=== PATIENT | female | born 1940 | race Caucasian/White ===

== ENCOUNTER 2018-07-10 16:02 | Emergency (ER) | payer OTHER ==
[2018-07-10 16:27] VITALS: BP 157/64; PULSE 72; TEMP 98.7; BMI 35.4
--- NOTE | 2018-07-10 16:33 | PDOC ---
Rapid Medical Evaluation Chief Complaint: Pain Time Seen by Provider: 07/10/18 16:26 Medical Evaluation: Allergies Allergy/AdvReac Type Severity Reaction Status Date / Time shellfish derived Allergy Severe Vomiting Verified 07/10/18 16:22 Vital Signs Temp Pulse Resp BP Pulse Ox 98.7 F 72 18 157/64 98 07/10/18 16:23 07/10/18 16:23 07/10/18 16:23 07/10/18 16:23 07/10/18 16:23 07/10/18 16:30 I have performed a brief in-person evaluation of this patient. The patient presents with a chief complaint of: right lower leg and calf pain since yesterday which only comes on with ambulation Pertinent physical exam findings: mild right peripheral LE edema. no calf tenderness. neg horman's sign I have ordered the following: RLE doppler The patient will proceed to the ED for further evaluation. Discharge Disposition - Diagnosis Right leg pain - Referrals - Patient Instructions - Post Discharge Activity
[2018-07-10] MEDS ORDERED: IBUPROFEN 600 MG TABLET (FP) PO ONE ×2 (16:49→17:01)
--- NOTE | 2018-07-10 17:03 | PDOC ---
History of Present Illness - General Chief Complaint: Pain Stated Complaint: LEG PAIN Time Seen by Provider: 07/10/18 16:26 History Source: Patient Exam Limitations: No Limitations - History of Present Illness Initial Comments: 07/10/18 16:53 pt c/o leg pain right side medial calf and front of calf for 2 days worse with crossing her leg. denies direct trauma. pt did not take any meds [employer] for pain no recent surgery or long trip. 07/10/18 17:20 Past History - Past Medical History Allergies/Adverse Reactions: Allergies Allergy/AdvReac Type Severity Reaction Status Date / Time shellfish derived Allergy Severe Vomiting Verified 07/10/18 16:22 COPD: No - Immunization History Immunization Up to Date: Yes - Suicide/Smoking/Psychosocial Hx Smoking History: Never smoked Hx Alcohol Use: Yes (social) Drug/Substance Use Hx: No *Physical Exam - Vital Signs Last Vital Signs Temp Pulse Resp BP Pulse Ox 98.7 F 72 18 157/64 98 07/10/18 16:23 07/10/18 16:23 07/10/18 16:23 07/10/18 16:23 07/10/18 16:23 Medical Decision Making - Medical Decision Making 07/10/18 17:23 cc: 2 days pain to the right lower leg no redness, no streaking skin intact ttp posterior knee US ordered from E pt refused motrin does not want to incur cost of the pills US resulted neg DVT popliteal cyst with osteochondrial bodies refer to orthopedist results discussed with patient copy of US given . pt agress with plan, all questions asked and answered. 07/10/18 18:34 *DC/Admit/Observation/Transfer Diagnosis at time of Disposition: Right leg pain Popliteal cyst Qualifiers: Laterality: right Qualified Code(s): M71.21 - Synovial cyst of popliteal space [[place]], right knee - Discharge Dispostion Disposition: HOME Condition at time of disposition: Good - Referrals Referrals: Seb Matson MD [Staff Physician] - - Patient Instructions Additional Instructions: elevate the leg and apply a warm compress behind the knee for 20-30 minutes every 4 hrs use the karthik wrap at all times except to bathe take ibuprofen (advil 400-600mg ) every 6hrs for pain follow with the orthopedist for follow up listed below [id number] or - Post Discharge Activity
== END 2018-07-10 17:28 | disposition home or self-care (01) ==
LOC: JERFT 16:02
DX: M71.21 Synovial cyst of popliteal space [Baker], right knee (principal)
CPT/HCPCS: 93971-TC; 99281-25

== ENCOUNTER 2023-03-15 08:28 | Inpatient (IN) | payer OTHER ==
[2023-03-15 08:40] VITALS: BMI 37.0
[2023-03-15] MEDS ORDERED: ACETAMINOPHEN 500 MG TABLET (FP) PO ONE (09:08)
[2023-03-15] MEDS ORDERED: ACETAMINOPHEN 325 MG TABLET (FP) ONE (09:24)
[2023-03-15 09:44] LABS: EPI CELLS 13 /uL (0-25.1); HYALINE CASTS 0 /uL (0-3.1); URINE APPEARANCE CLEAR; URINE BACTERIA 2 /uL (0-1359); URINE BILIRUBIN NEGATIVE (NEGATIVE); URINE COLOR YELLOW; URINE GLUCOSE (UA) NEGATIVE (NEGATIVE); URINE KETONE NEGATIVE (NEGATIVE); URINE LEUK ESTERASE NEGATIVE (NEGATIVE); URINE NITRITE NEGATIVE (NEGATIVE); URINE PROTEIN NEGATIVE (NEGATIVE); URINE RBC 45 /uL (0-23.9); URINE UROBILINOGEN 0.2 mg/dL (0.2-1.0); URINE WBC 7 /uL (0-25.8)
[2023-03-15] MEDS ORDERED: morphine SULFATE 4 MG/ML VIAL IVPUSH ONE ×2 (10:13→13:42)
[2023-03-15 10:37] LABS: BASO % 0.1 % (0-2.0); EOS % 0.2 % (0-4.5); HEMATOCRIT 37.2 % (32.4-45.2); HEMOGLOBIN 12.3 GM/dL (10.7-15.3); LYMPH % 8.8 % (8-40); MCH 28.7 pg (25.7-33.7); MCHC 33.1 g/dl (32.0-36.0); MEAN CELL VOLUME 86.8 fl (80-96); MEAN PLT VOLUME 8.8 fl (7.5-11.1); MONO % 7.1 % (3.8-10.2); NEUT % 83.8 % (42.8-82.8); PLATELET COUNT 208 10^3/uL (134-434); RBC 4.29 M/mm3 (3.60-5.2); RDW 13.3 % (11.6-15.6); WHITE BLOOD COUNT 11.8 K/mm3 (4.0-10.0)
[2023-03-15 10:55] LABS: POTASSIUM 4.4 mmol/L (3.5-5.1)
[2023-03-15 10:57] LABS: CALCIUM 9.1 mg/dL (8.5-10.1)
[2023-03-15 10:58] LABS: ALBUMIN 3.3 g/dl (3.4-5.0); BLOOD UREA NITROGEN 14.1 mg/dL (7-18)
[2023-03-15 11:02] LABS: BILIRUBIN,TOTAL 0.6 mg/dL (0.2-1); CREATININE 1.7 mg/dL (0.55-1.3)
[2023-03-15 11:04] LABS: TOT PROT 6.5 g/dl (6.4-8.2)
[2023-03-15] MEDS ORDERED: CEFTRIAXONE 1,000 MG in DEXTROSE 5%-WATER - 50 ML IVPB ONE (11:18)
[2023-03-15 11:21] LABS: ACTIVATED PTT 29.8 SECONDS (25.2-36.5); INR 0.93 (0.83-1.09); PROTHROMBIN TIME (PATIENT) 10.8 SEC (9.7-13.0)
[2023-03-15] MEDS ORDERED: CEFTRIAXONE 1 GM/50 ML BAG ONE (11:28)
[2023-03-15] MEDS ORDERED: LACTATED RINGERS SOLUTION 1000 ML INFUS.BAG IV ONE (11:29)
[2023-03-15] MEDS ORDERED: morphine CARPU-JECT 2 MG/1 ML DISP.SYRIN IVPUSH ONE (11:52)
[2023-03-15] MEDS ORDERED: morphine SULFATE 4 MG/ML VIAL ONE (13:42)
[2023-03-15] MEDS ORDERED: ONDANSETRON 4 MG/2 ML VIAL IVPUSH PRN (14:26)
[2023-03-15] MEDS ORDERED: ACETAMINOPHEN 500 MG TABLET (FP) PO PRN (14:26)
[2023-03-15] MEDS ORDERED: ONDANSETRON 4 MG/2 ML VIAL ONE (14:38)
[2023-03-15] MEDS ORDERED: TAMSULOSIN HCL 0.4 MG CAP ONE (14:38)
[2023-03-15] MEDS: TAMSULOSIN HCL 0.4 MG CAP PO SCH (14:39)
[2023-03-15] MEDS: LACTATED RINGERS SOLUTION 1,000 ML/1,000 ML INFUS.BAG IV SCH ×2 (14:46→19:56)
[2023-03-15] MEDS ORDERED: HEPARIN NA (PORCINE) 5,000 UNITS/ML 1ML VIAL SQ SCH (22:00)
[2023-03-16] MEDS ORDERED: PROPOFOL 20 ML ONE (08:11)
[2023-03-16] MEDS ORDERED: LACTATED RINGERS SOLUTION 1,000 ML IV SCH (08:15)
[2023-03-16] MEDS ORDERED: ceFAZolin SODIUM 1 GM VIAL IVPB ONE (08:20)
[2023-03-16] MEDS ORDERED: LACTATED RINGERS SOLUTION 1,000 ML/1,000 ML INFUS.BAG IV SCH (09:07)
[2023-03-16] MEDS ORDERED: ONDANSETRON 4 MG/2 ML VIAL IVPUSH PRN (09:07)
[2023-03-16] MEDS: TAMSULOSIN HCL 0.4 MG CAP PO SCH (10:36)
[2023-03-16] MEDS: HEPARIN NA (PORCINE) 5,000 UNITS/ML 1ML VIAL SQ SCH (10:43)
[2023-03-16] MEDS: LACTATED RINGERS SOLUTION 1,000 ML/1,000 ML INFUS.BAG IV SCH (11:45)
[2023-03-16 15:36] LABS: POTASSIUM 4.7 mmol/L (3.5-5.1)
[2023-03-16 15:37] LABS: CALCIUM 8.4 mg/dL (8.5-10.1)
[2023-03-16 15:38] LABS: BLOOD UREA NITROGEN 16.6 mg/dL (7-18)
[2023-03-16 15:41] LABS: CREATININE 2.4 mg/dL (0.55-1.3)
[2023-03-16 18:29] LABS: BASO % 0.1 % (0-2.0); HEMOGLOBIN 11.4 GM/dL (10.7-15.3); LYMPH % 8.2 % (8-40); MCH 28.5 pg (25.7-33.7); MCHC 32.7 g/dl (32.0-36.0); MEAN CELL VOLUME 87.1 fl (80-96); MEAN PLT VOLUME 9.3 fl (7.5-11.1); MONO % 7.3 % (3.8-10.2); NEUT % 84.4 % (42.8-82.8); PLATELET COUNT 207 10^3/uL (134-434); RBC 4.02 M/mm3 (3.60-5.2); RDW 13.3 % (11.6-15.6); WHITE BLOOD COUNT 15.7 K/mm3 (4.0-10.0)
[2023-03-17] MEDS: HEPARIN NA (PORCINE) 5,000 UNITS/ML 1ML VIAL SQ SCH (04:32)
[2023-03-17] MEDS ORDERED: TAMSULOSIN HCL 0.4 MG CAP PO SCH (08:30)
[2023-03-17 09:46] LABS: BASO % 0.1 % (0-2.0); EOS % 0.5 % (0-4.5); HEMATOCRIT 31.3 % (32.4-45.2); HEMOGLOBIN 10.4 GM/dL (10.7-15.3); MCH 28.9 pg (25.7-33.7); MCHC 33.1 g/dl (32.0-36.0); MEAN CELL VOLUME 87.2 fl (80-96); MEAN PLT VOLUME 9.5 fl (7.5-11.1); MONO % 8.9 % (3.8-10.2); NEUT % 74.5 % (42.8-82.8); PLATELET COUNT 176 10^3/uL (134-434); RBC 3.59 M/mm3 (3.60-5.2); RDW 13.1 % (11.6-15.6); WHITE BLOOD COUNT 9.4 K/mm3 (4.0-10.0)
[2023-03-17 09:52] LABS: INR 1.03 (0.83-1.09)
[2023-03-17 10:06] LABS: CALCIUM 8.5 mg/dL (8.5-10.1)
[2023-03-17 10:10] LABS: CREATININE 1.6 mg/dL (0.55-1.3); PHOSPHOROUS 3.6 mg/dL (2.5-4.9)
[2023-03-17 10:12] LABS: BILIRUBIN,TOTAL 0.6 mg/dL (0.2-1); TOT PROT 5.7 g/dl (6.4-8.2)
[2023-03-17 10:21] LABS: ALBUMIN 2.6 g/dl (3.4-5.0)
[2023-03-17] MEDS ORDERED: PROPOFOL 20 ML ONE (16:26)
[2023-03-17] MEDS ORDERED: MIDAZOLAM HCL 2 MG/2 ML SINGLE DOSE VIAL ONE (16:26)
[2023-03-17] MEDS: LACTATED RINGERS SOLUTION 1,000 ML/1,000 ML INFUS.BAG IV SCH (18:58)
[2023-03-17] MEDS ORDERED: ONDANSETRON 4 MG/2 ML VIAL IVPUSH PRN (19:57)
[2023-03-17] MEDS ORDERED: LACTATED RINGERS SOLUTION 1,000 ML/1,000 ML INFUS.BAG IV SCH (19:57)
[2023-03-18] MEDS ORDERED: TAMSULOSIN HCL 0.4 MG CAP PO SCH (08:30)
[2023-03-18 11:52] VITALS: BP 140/71; PULSE 73; RESP 18; TEMP 99.1
== END 2023-03-18 14:09 | disposition home or self-care (01) | DRG 661 ==
LOC: JER 08:28 → JERBED 14:04 → OBSVTOIN 14:24 → J5S 18:13
PROVIDERS: ADMIT Internal Medicine; ATTEND Internal Medicine
PROC: 0TC78ZZ Extirpation of Matter from Left Ureter, Via Natural or Artificial Opening Endoscopic (ICD-10-PCS; 2023-03-17)
PROC: 0T778DZ Dilation of Left Ureter with Intraluminal Device, Via Natural or Artificial Opening Endoscopic (ICD-10-PCS; principal; 2023-03-17 16:30)
DX: N17.9 Acute kidney failure, unspecified (principal); N13.2 Hydronephrosis with renal and ureteral calculous obstruction; M71.21 Synovial cyst of popliteal space [Baker], right knee; M79.604 Pain in right leg; R31.29 Other microscopic hematuria
CPT/HCPCS: 36415; 74176-TC; 74177-TC; 76000-TC-FY; 80048; 80053; 81003; 83036; 83605; 83690; 83735; 84100; 85025; 85610; 85730; 86850; 86900; 86901; 87086; 94760; 99285-25; C2617; G0378; J1644; Q9967